=== PATIENT | female | born 1980 | race African-American/Black ===

== ENCOUNTER 2017-07-31 13:30 | Emergency (ER) | payer MEDICAID, OTHER ==
[2017-07-31 13:38] VITALS: BP 131/73; BMI 32.9
[2017-07-31] MEDS ORDERED: TORADOL 60 MG VIAL IM ONE (15:31)
[2017-07-31] MEDS ORDERED: TORADOL 60 MG VIAL ONE (15:32)
[2017-07-31 15:46] LABS: BILIRUBIN,URINE NEGATIVE (NEGATIVE); BLOOD/HEMOGLOBIN,URINE NEGATIVE (NEGATIVE); GLUCOSE, URINE NEGATIVE (NEGATIVE); KETONES,URINE NEGATIVE (NEGATIVE); LEUKOCYTE ESTERASE ,URINE 1+ (NEGATIVE); NITRITES,URINE NEGATIVE (NEGATIVE); PROTEIN,URINE NEGATIVE (NEGATIVE); UROBILINOGEN,URINE NORMAL (NORMAL)
[2017-07-31 15:57] LABS: APPEARANCE,URINE CLEAR (CLEAR); COLOR,URINE YELLOW (YELLOW); RBC,URINE NEGATIVE /HPF (NONE SEEN); SQUAMOUS EPITHELIAL CELL,UR NUMEROUS /HPF (NEGATIVE)
[2017-07-31 15:58] LABS: BACTERIA,URINE TRACE /HPF (NEGATIVE)
--- NOTE | 2017-07-31 15:58 | DR.GENAD ---
HPI - PCP Primary Care Physician: [id number] - Complaint/Symptoms Chief Complaint:: "very bad back pain I slipped in the shower this moring and it 's hurting really really bad" - Source History Provided: Patient - Mode of Arrival Mode of Arrival: Ambulatory - Timing Onset of Chief Complaint: 07/31/17 PMH - PMH Past Medical History: Yes Past Medical History: Anxiety Past Surgical History: Yes Surgical History: Past Surgical History Comment: tubes tided - Family History History of Family Medical Conditions: No - Social History Does patient currently use any type of tobacco product: Yes Have you used tobacco products in the last 12 months: Yes Type of Tobacco Use: Cigarettes How many years tobacco product used: 11 Does any household member use tobacco: No Alcohol Use: None Do you use any recreational Drugs:: No Lives With: Family Lives Where: Home - infectious screening In the last 2 months have you had wt loss of >10#?: NO Have you had fever, night sweats or hemotysis?: No Have you traveled outside the country in the last 6 months?: No Isolation: Standard PE - Vital Signs Vitals: Temperature 98.1 F Pulse Rate 90 Respiratory Rate 18 Blood Pressure 131/73 O2 Sat by Pulse Oximetry 99 - Discharge Plan Condition: Stable - Follow ups/Referrals Follow ups/Referrals: CHEYANNE ESPINOSA [Primary Care Provider] - 3 days - Instructions
== END 2017-07-31 16:05 | disposition left against medical advice (07) ==
LOC: ER 13:46
DX: M54.89 Other dorsalgia (principal)
CPT/HCPCS: 81001; 96372; 99282; J1885